=== PATIENT | female | born 1985 | race Caucasian/White ===

== ENCOUNTER 2016-12-21 22:42 | Emergency (ER) | payer OTHER ==
[2016-12-21 23:33] VITALS: BMI 39.6
[2016-12-21 23:36] VITALS: TEMP 98.4
--- NOTE | 2016-12-21 23:49 | ED PDOC ---
Arrival/HPI - General Chief Complaint: GI Problem Time Seen by Provider: 12/21/16 23:45 Historian: Patient - History of Present Illness Narrative History of Present Illness (Text): 12/21/16 23:49 Paige Goyal is a 31 year old female, whose past medical history includes cholecystectomy, who presents to the ED complaining of abdominal pain after eating yesterday. Patient states she developed abdominal pain with associated nausea, vomiting, and diarrhea after eating at a fast food restaurant yesterday evening. Patient denies any fever, chills, chest pain, shortness of breath, urinary symptoms, back pain, neck pain, headache, dizziness, or any other complaints. Time/Duration: Other (yesterday) Symptom Onset: Gradual Symptom Course: Unchanged Activities at Onset: Light, Eating Context: Home Past Medical History - Provider Review Nursing Documentation Reviewed: Yes - Infectious Disease Hx of Infectious Diseases: None - Tetanus Immunization Tetanus Immunization: Unknown - Cardiac Hx Cardiac Disorders: No - Pulmonary Hx Respiratory Disorders: Yes Hx Asthma: Yes - Neurological Hx Neurological Disorder: No - HEENT Hx HEENT Disorder: No - Renal Hx Renal Disorder: No - Endocrine/Metabolic Hx Endocrine Disorders: No - Hematological/Oncological Hx Blood Disorders: No - Integumentary Hx Dermatological Disorder: No - Musculoskeletal/Rheumatological Hx Musculoskeletal Disorders: No - Gastrointestinal Hx Gastrointestinal Disorders: Yes Hx Gall Bladder Disease: Yes Other/Comment: GALLBLADDER REMOVED 2015 - Genitourinary/Gynecological Hx Genitourinary Disorders: No - Psychiatric Hx Psychophysiologic Disorder: No Hx Substance Use: No - Surgical History Hx Cholecystectomy: Yes - Anesthesia Hx Anesthesia: Yes Hx Anesthesia Reactions: No Hx Malignant Hyperthermia: No - Suicidal Assessment Feels Threatened In Home Enviroment: No Family/Social History - Physician Review Nursing Documentation Reviewed: Yes Family/Social History: No Known Family HX Smoking Status: Never Smoked Hx Alcohol Use: No Hx Substance Use: No Allergies/Home Meds Allergies/Adverse Reactions: Allergies No Known Allergies Allergy (Verified 12/03/16 10:05) Home Medications: Home Meds Medication Instructions Recorded Confirmed Albuterol HFA [Ventolin HFA 90 1 puff INH PRN PRN 04/30/16 12/03/16 mcg/actuation (8 g)] Review of Systems - Physician Review All systems were reviewed & negative as marked: Yes - Review of Systems Constitutional: Normal. absent: Fevers Eyes: Normal ENT: Normal Respiratory: Normal. absent: SOB, Cough Cardiovascular: Normal. absent: Chest Pain Gastrointestinal: Abdominal Pain, Diarrhea, Nausea, Vomiting Genitourinary Female: Normal. absent: Dysuria, Frequency, Hematuria, Urine Output Changes Musculoskeletal: Normal. absent: Back Pain, Neck Pain Skin: Normal. absent: Rash Neurological: Normal. absent: Headache, Dizziness Endocrine: Normal Hemo/Lymphatic: Normal Psychiatric: Normal Physical Exam Vital Signs Reviewed: Yes Vital Signs Temp Pulse Resp BP Pulse Ox 12/22/16 02:16 79 17 114/53 L 99 12/21/16 23:35 98.4 F 96 H 18 106/64 100 Temperature: Afebrile Blood Pressure: Normal Pulse: Regular Respiratory Rate: Normal Appearance: Positive for: Well-Appearing, Non-Toxic, Comfortable Pain Distress: None Mental Status: Positive for: Alert and Oriented X 3 - Systems Exam Head: Present: Atraumatic, Normocephalic Pupils: Present: PERRL Extroacular Muscles: Present: EOMI Conjunctiva: Present: Normal Mouth: Present: Moist Mucous Membranes Neck: Present: Normal Range of Motion Respiratory/Chest: Present: Clear to Auscultation, Good Air Exchange. No: Respiratory Distress, Accessory Muscle Use Cardiovascular: Present: Regular Rate and Rhythm, Normal S1, S2. No: Murmurs Abdomen: Present: Normal Bowel Sounds. No: Tenderness, Distention, Peritoneal Signs Back: Present: Normal Inspection Upper Extremity: Present: Normal Inspection. No: Cyanosis, Edema Lower Extremity: Present: Normal Inspection. No: Edema Neurological: Present: GCS=15, CN II-XII Intact, Speech Normal Skin: Present: Warm, Dry, Normal Color. No: Rashes Psychiatric: Present: Alert, Oriented x 3, Normal Insight, Normal Concentration Medical Decision Making ED Course and Treatment: 12/21/16 23:49 Impression: 31 year old female complaining of abdominal pain, nausea, vomiting, and diarrhea after eating yesterday. Differential Diagnosis include but are not limited to: gastroenteritis Plan: -- Labs, lipase -- Urinalysis -- IV fluids -- Zofran -- Toradol -- Reassess and disposition Progress Notes: 12/22/16 01:55 On re-evaluation, the patient feels better and is in no acute distress. I have discussed the results and plan with the patient, who expresses understanding. Patient in agreement with plan to discharged home. Patient is stable for discharge. Patient was instructed to follow up with physician/clinic in 1-2 days or return if symptoms worsen or new concerning symptoms arise. Re-evaluation Time: :57 Reassessment Condition: Re-examined, Improved - Lab Interpretations Lab Results: 12/21/16 23:57 12/21/16 23:57 Lab Results 12/21/16 23:57: WBC 8.4 D, RBC 4.77, Hgb 13.2, Hct 38.7, MCV 81.1, MCH 27.7, MCHC 34.1, RDW 13.8, Plt Count 282, MPV 10.4, Gran % 83.7 H, Lymph % (Auto) 11.5 L, [place] % (Auto) 4.2, Eos % (Auto) 0.5 L, Baso % (Auto) 0.1, Gran # 7.01 H , Lymph # 1.0 L, [place] # 0.4, Eos # 0.0, Baso # 0.01, PT 10.7, INR 0.99, APTT 29.8, Sodium 134, Potassium 3.6, Chloride 100, Carbon Dioxide 24, Anion Gap 14, BUN 12, Creatinine 0.7, Est GFR ( Amer) > 60, Est GFR (Non-Af Amer) > 60 , Random Glucose 98, Calcium 8.9, Total Bilirubin 0.9, AST 31, ALT 23, Alkaline Phosphatase 59, Total Protein 8.4 H, Albumin 4.4, Globulin 4.0, Albumin/ Globulin Ratio 1.1, Lipase 83, Urine Color Yellow, Urine Appearance Clear, Urine pH 6.0, Ur Specific [place] 1.025, Urine Protein Negative, Urine Glucose ( UA) Negative, Urine Ketones Negative, Urine Blood Negative, Urine Nitrate Negative, Urine Bilirubin Negative, Urine Urobilinogen 0.2, Ur Leukocyte Esterase Negative, Urine HCG, Qual Negative - Medication Orders Current Medication Orders: Discontinued Medications Sodium Chloride (Sodium Chloride 0.9%) 1,000 mls @ 100 mls/hr IV .Q10H STA Stop: 12/22/16 09:51 Last Admin: 12/22/16 00:25 Dose: 100 MLS/HR eMAR Start Stop Document 12/22/16 00:25 MR (Rec: 12/22/16 00:26 MR [facility] [id number]) Intravenous Solution Start Date 12/22/16 Start Time 00:25 Ketorolac Tromethamine (Toradol) 30 mg IVP STAT STA Stop: 12/21/16 23:53 Last Admin: 12/22/16 00:25 Dose: 30 MG IVP Administration Document 12/22/16 00:25 MR (Rec: 12/22/16 00:25 [facility]-[id number]) Charges for Administration # of IVP Administrations 1 Ondansetron HCl (Zofran Inj) 4 mg IVP STAT STA Stop: 12/21/16 23:53 Last Admin: 12/22/16 00:25 Dose: 4 MG IVP Administration Document 12/22/16 00:25 MR (Rec: 12/22/16 00:25 [facility]-[id number]) Charges for Administration # of IVP Administrations 1 - Scribe Statement The provider has reviewed the documentation as recorded by the Elena Adams Provider Attestation: All medical record entries made by the Elena were at my direction and personally dictated by me. I have reviewed the chart and agree that the record accurately reflects my personal performance of the history, physical exam, medical decision making, and the department course for this patient. I have also personally directed, reviewed, and agree with the discharge instructions and disposition. Disposition/Present on Arrival - Present on Arrival Any Indicators Present on Arrival: No History of DVT/PE: No History of Uncontrolled Diabetes: No Urinary Catheter: No History of Decub. Ulcer: No History Surgical Site Infection Following: None - Disposition Have Diagnosis and Disposition been Completed?: Yes Diagnosis: Gastroenteritis Disposition: HOME/ ROUTINE Disposition Time: 01:57 Condition: GOOD Discharge Instructions (ExitCare): Gastroenteritis (ED) Prescriptions: Ondansetron [Zofran Odt] 8 mg PO TID PRN #10 odt PRN Reason: Nausea/Vomiting
[2016-12-21] MEDS ORDERED: Sodium Chloride 0.9% 1,000 ML IV STA (23:52)
[2016-12-22 00:38] LABS: ADD MANUAL DIFF? NO
[2016-12-22 00:49] LABS: BASO # 0.01 K/mm3 (0.0-2.0); BASO % 0.1 % (0.0-3.0); EOS % 0.5 % (1.5-5.0); GRAN # 7.01 (1.4-6.5); GRAN % 83.7 % (50.0-68.0); HEMATOCRIT 38.7 % (36.0-48.0); LYMPH % 11.5 % (22.0-35.0); MEAN CELL VOLUME 81.1 fL (80.0-105.0); MEAN CORPUSCULAR HEMOGLOBIN 27.7 pg (25.0-35.0); MEAN CORPUSCULAR HGB CONC 34.1 g/dl (31.0-37.0); MEAN PLATELET VOLUME 10.4 fl (7.0-11.0); MONO # 0.4 (0.1-0.6); MONO % 4.2 % (1.0-6.0); PLATELET COUNT 282 10^3/uL (120.0-450.0); RED CELL DISTRIBUTION WIDTH 13.8 % (11.5-14.5); WHITE BLOOD COUNT 8.4 10^3/ul (4.5-11.0)
[2016-12-22 00:51] LABS: ALB/GLOB RATIO 1.1 (1.1-1.8); ALKALINE PHOSPHATASE 59 U/L (38-133); ALT/SGPT 23 U/L (7-56); AST/SGOT 31 U/L (15-39); BILIRUBIN,TOTAL 0.9 mg/dL (0.2-1.3); BLOOD UREA NITROGEN 12 mg/dL (7-21); CALCIUM 8.9 mg/dL (8.4-10.5); CARBON DIOXIDE 24 mmol/L (21-33); CHLORIDE 100 mmol/L (98-107); GFR AFRICAN-AMERICAN > 60; GLUCOSE,RANDOM 98 mg/dL (70-110); INR 0.99 (0.93-1.08); LIPASE 83 U/L (23-300); PARTIAL THROMBOPLASTIN TIME 29.8 Seconds (23.7-30.8); POTASSIUM 3.6 mmol/L (3.6-5.0); SODIUM 134 mmol/L (132-148); TOTAL PROTEIN 8.4 g/dL (5.8-8.3)
[2016-12-22 00:52] LABS: URINE BILIRUBIN NEGATIVE (NEGATIVE); URINE BLOOD NEGATIVE (NEGATIVE); URINE GLUCOSE (UA) NEGATIVE (NEGATIVE); URINE KETONE NEGATIVE (NEGATIVE); URINE LEUKOCYTE ESTERASE NEGATIVE Leu/uL (NEGATIVE); URINE PROTEIN NEGATIVE mg/dL (<30 mg/dL); URINE UROBILINOGEN 0.2 E.U./dL (<1 E.U./dL)
[2016-12-22 00:57] LABS: URINE APPEARANCE CLEAR (CLEAR); URINE COLOR YELLOW (YELLOW)
[2016-12-22 02:29] VITALS: BP 114/53; PULSE 79; RESP 17; O2SAT 99
== END 2016-12-22 02:18 | disposition home or self-care (01) ==
LOC: ED 22:42
DX: K52.9 Noninfective gastroenteritis and colitis, unspecified (principal); Z90.49 Acquired absence of other specified parts of digestive tract
CPT/HCPCS: 80053; 81003; 83690; 84703; 85025; 85610; 85730; 96374; 96375; 99284; J1885; J2405; J7040

== ENCOUNTER 2018-02-17 14:25 | Emergency (ER) | payer OTHER ==
[2018-02-17 14:33] VITALS: BMI 41.5
[2018-02-17 14:34] VITALS: RESP 18
[2018-02-17] MEDS ORDERED: Sodium Chloride 0.9% 1,000 ML IV STA ×2 (14:51→17:49)
--- NOTE | 2018-02-17 15:29 | ED PDOC ---
Arrival/HPI - General Chief Complaint: Abdominal Pain Time Seen by Provider: 02/17/18 14:48 Historian: Patient - History of Present Illness Narrative History of Present Illness (Text): 02/17/18 15:21 32yr old female presents today with abdominal pain, nausea, vomiting, diarrhea since 7am this morning. pt States she woke up with lower abdominal cramping and sharp pain followed by episode of diarrhea. Patient states the pain continued and then she started to develop nausea and vomiting. Patient states the pain is constant and now is radiating to the right flank. Patient denies any urinary symptoms. She denies chest pain or shortness of breath. Patient states she tried to take Pepto-Bismol but shortly after taking Pepto-Bismol she vomited again. Patient states she is feeling extremely nauseous to the point where she has been unable to eat or drink anything today. Patient states she also noticed that all extremities felt weak and tingly. Time/Duration: Other (This AM) Symptom Onset: Sudden Symptom Course: Unchanged Quality: Stabbing, Cramping Severity Level: Moderate Past Medical History - Provider Review Nursing Documentation Reviewed: Yes - Travel History Have you recently traveled outside [place] w/in the past 3 mons?: No - Infectious Disease Hx of Infectious Diseases: None - Tetanus Immunization Tetanus Immunization: Unknown - Cardiac Hx Cardiac Disorders: No - Pulmonary Hx Respiratory Disorders: Yes Hx Asthma: Yes - Neurological Hx Neurological Disorder: No - HEENT Hx HEENT Disorder: No - Renal Hx Renal Disorder: No - Endocrine/Metabolic Hx Endocrine Disorders: No - Hematological/Oncological Hx Blood Disorders: No - Integumentary Hx Dermatological Disorder: No - Musculoskeletal/Rheumatological Hx Musculoskeletal Disorders: No - Gastrointestinal Hx Gastrointestinal Disorders: Yes Hx Gall Bladder Disease: Yes Other/Comment: GALLBLADDER REMOVED 2015 - Genitourinary/Gynecological Hx Genitourinary Disorders: No - Psychiatric Hx Psychophysiologic Disorder: No Hx Substance Use: No - Surgical History Hx Cholecystectomy: Yes - Anesthesia Hx Anesthesia: Yes Hx Anesthesia Reactions: No Hx Malignant Hyperthermia: No - Suicidal Assessment Feels Threatened In Home Enviroment: No Family/Social History - Physician Review Nursing Documentation Reviewed: Yes Family/Social History: Unknown Family HX Smoking Status: Never Smoked Hx Alcohol Use: No Hx Substance Use: No Allergies/Home Meds Allergies/Adverse Reactions: Allergies No Known Allergies Allergy (Verified 03/11/17 10:05) Home Medications: Home Meds Medication Instructions Recorded Confirmed Albuterol HFA [Ventolin HFA 90 1 puff INH PRN PRN 04/30/16 12/03/16 mcg/actuation (8 g)] Review of Systems - Review of Systems Constitutional: Fevers (subjective fevers/chills). absent: Fatigue Respiratory: absent: SOB, Cough Cardiovascular: absent: Chest Pain, Palpitations Gastrointestinal: Abdominal Pain, Diarrhea, Nausea, Vomiting. absent: Constipation Genitourinary Female: absent: Dysuria, Frequency, Hematuria Musculoskeletal: Back Pain. absent: Arthralgias, Neck Pain Skin: absent: Rash, Pruritis Neurological: absent: Headache, Dizziness Psychiatric: absent: Anxiety, Depression, Suicidal Ideation Physical Exam Vital Signs Reviewed: Yes Vital Signs Temp Pulse Resp BP Pulse Ox 02/17/18 20:09 117/63 02/17/18 19:29 98.9 F 91 H 18 106/58 L 99 02/17/18 17:41 86 18 98/72 L 100 02/17/18 15:29 92 H 18 105/66 100 02/17/18 14:27 98.8 F 106 H 18 101/70 99 Temperature: Afebrile Blood Pressure: Normal Pulse: Tachycardic Respiratory Rate: Normal Appearance: Positive for: Well-Appearing, Non-Toxic, Comfortable Pain Distress: None Mental Status: Positive for: Alert and Oriented X 3 - Systems Exam Head: Present: Atraumatic Mouth: Present: Moist Mucous Membranes Neck: Present: Normal Range of Motion Respiratory/Chest: Present: Clear to Auscultation, Good Air Exchange. No: Respiratory Distress, Accessory Muscle Use Cardiovascular: Present: Regular Rate and Rhythm, Normal S1, S2. No: Murmurs Abdomen: Present: Tenderness (diffuse abdominal tenderness. ). No: Distention, Peritoneal Signs, Guarding Back: Present: Normal Inspection. No: CVA Tenderness, Midline Tenderness, Paraspinal Tenderness Upper Extremity: Present: Normal ROM, NORMAL PULSES. No: Swelling Lower Extremity: Present: Normal ROM Neurological: Present: GCS=15, Speech Normal Skin: Present: Warm, Dry, Normal Color. No: Rashes Psychiatric: Present: Alert, Oriented x 3 Medical Decision Making ED Course and Treatment: 02/17/18 15:31 Patient is nontoxic well appearing with stable vital signs presenting with abdominal pain CBC wbc: 11.5 CMP wnl Lipase wnl Urinalysis trace ketones CAT scan: FINDINGS: LOWER THORAX: Mild linear/nodular appearing scarring changes seen in the left lingular region and anterolateral of lower lung field extending to the pleural surface with some localized pleural thickening. There also appears to be some minor linear scarring in the middle lobe. Extending to the base the Lung bases are otherwise clear without evidence of infiltrate effusion or basilar pneumothorax. There is a tiny hiatal hernia. Heart size normal. No significant pericardial effusion. LIVER: Liver is upper limits of normal in size measuring just over 18 cm in CC dimension. Liver exhibits normal attenuation pattern. Portal and splenic veins are opacified. GALLBLADDER AND BILE DUCTS: Cholecystectomy. PANCREAS: Unremarkable. No mass. No ductal dilatation. SPLEEN: Spleen is borderline/mildly enlarged measuring nearly 13 cm in AP dimension. No splenic mass collection or calcification. ADRENALS: There are no adrenal lesions. KIDNEYS AND URETERS: Kidneys demonstrate relatively symmetric nephrograms. No evidence of nephrolithiasis or hydronephrosis. BLADDER: Urinary bladder is incompletely distended which in part accounts for thick- walled appearance. Correlation with urinalysis recommended to exclude cystitis. REPRODUCTIVE: In situ Copper-T IUD. APPENDIX: What appears to represent a normal appendix best seen on axial image number [id number]. No periappendiceal inflammatory changes are identified. . BOWEL: Evaluation of the bowel is somewhat limited due to the lack of oral contrast material. The stomach is incompletely distended which in part accounts for thick-walled appearance. Visualized loops of small bowel exhibit relatively normal caliber though are fluid-filled throughout ; findings may represent underlying diarrheal illness. Liquid stool is also present within the right as well as transverse colon also consistent with diarrheal illness. Clinical correlation with history recommended. . PERITONEUM: Unremarkable. No fluid collection. No free air. Small fat containing umbilical hernia. LYMPH NODES: Unremarkable. No enlarged lymph nodes. VASCULATURE: Unremarkable. No aortic aneurysm. BONES: Minor multilevel degenerative spondylosis of the lower thoracic and lumbar spine. OTHER FINDINGS: None. IMPRESSION: Status post cholecystectomy. Liquids multiple nondistended fluid-filled loops of small bowel with liquid stool seen in the right and transverse colon. Findings suggest underlying diarrheal illness. Clinical correlation recommended. Borderline/mild splenomegaly. Liver is upper limits of normal in size. In situ Copper-T IUD. Patient reassessment:pt is non toxic well appearing; vitals stable. pt is afebrile feeling slightly better. will send stool culture; pt unable to given stool culture. will place patient on bactrim for bacterial causes of diarrhea. advised f/u with PMD and GI specialist. advised taking abx as prescribed. advised immediate return if symptoms worsen, persist or if new symptoms develop. Discussed all results with patient in depth Patient verbalizes understanding of discharge instructions and need for immediate followup. all aspects of this case were discussed the attending of record. Impression: Abdominal pain, diarrhea Motrin every 6 hours as needed for pain Increase fluids bactrim; 1 tablet twice daily x 7 days. Follow up with primary care physician within the next 2 days Follow up with the GI specialist within the next 2 days. Return immediately if symptoms worsen persist or if new symptoms develop: High fevers, increasing pain, vomiting, diarrhea or any other concerning symptoms develop Reassessment Condition: Re-examined, Improved - Lab Interpretations Lab Results: 02/17/18 15:18 02/17/18 15:18 Lab Results 02/17/18 16:20: Urine Color Yellow, Urine Appearance Clear, Urine pH 6.0, Ur Specific [place] 1.025, Urine Protein Negative, Urine Glucose (UA) Negative, Urine Ketones Trace H, Urine Blood Negative, Urine Nitrate Negative, Urine Bilirubin Negative, Urine Urobilinogen 0.2, Ur Leukocyte Esterase Negative, Urine HCG, Qual Negative 02/17/18 15:18: WBC 11.5 H D, RBC 4.83, Hgb 13.3, Hct 39.1, MCV 81.0, MCH 27.5, MCHC 34.0, RDW 13.7, Plt Count 261, MPV 10.2, Gran % 93.4 H, Lymph % (Auto) 4.1 L, [place] % (Auto) 2.3, Eos % (Auto) 0.1 L, Baso % (Auto) 0.1, Gran # 10.73 H, Lymph # (Auto) 0.5 L, [place] # (Auto) 0.3, Eos # (Auto) 0.0, Baso # (Auto) 0.01, Neutrophils % (Manual) 91 H, Band Neutrophils % 2, Lymphocytes % (Manual) 6 L, Monocytes % (Manual) 1, Platelet Evaluation Normal 02/17/18 15:18: Sodium 140, Potassium 4.0, Chloride 105, Carbon Dioxide 22, Anion Gap 17, BUN 14, Creatinine 0.7, Est GFR ( Amer) > 60, Est GFR (Non- Af Amer) > 60, Random Glucose 108, Calcium 9.0, Total Bilirubin 0.7, AST 29, ALT 26, Alkaline Phosphatase 48, Total Protein 7.6, Albumin 4.3, Globulin 3.3, Albumin/Globulin Ratio 1.3, Lipase 40 - RAD Interpretation Radiology Orders: 02/17/18 15:49 ABD & PELVIS IV CONTRAST ONLY [CT] Stat - Medication Orders Current Medication Orders: Discontinued Medications Acetaminophen (Tylenol 325mg Tab) 975 mg PO STAT STA Stop: 02/17/18 19:45 Last Admin: 02/17/18 20:07 Dose: 975 mg MAR Pain/Vitals Document 02/17/18 20:07 OCS (Rec: 02/17/18 20:08 OCS [id number]) Pain Reassessment Is This A Pain ReAssessment? Yes Sleep Is patient sleeping during reassessment? No Presence of Pain Presence of Pain Yes Pain Scale Used Pain Scale Used Numeric Location Left, Right or Bilateral Bilateral Pain Location Body Site Abdomen Description Constant Intensity 10 Scale Used Numeric Pain Behavior Moaning Aggravating Factors ADL's Sodium Chloride (Sodium Chloride 0.9%) 1,000 mls @ 999 mls/hr IV .Q1H1M STA Stop: 02/17/18 15:51 Last Admin: 02/17/18 15:20 Dose: 999 mls/hr eMAR Start Stop Document 02/17/18 15:20 OCS (Rec: 02/17/18 15:24 OCS [id number]) Intravenous Solution Start Date 02/17/18 Start Time 15:20 End Date 02/17/18 End time 16:21 Total Infusion Time 61 Sodium Chloride (Sodium Chloride 0.9%) 1,000 mls @ 999 mls/hr IV .Q1H1M STA Stop: 02/17/18 18:49 Last Admin: 02/17/18 18:03 Dose: 999 mls/hr eMAR Start Stop Document 02/17/18 18:03 OCS (Rec: 02/17/18 18:03 OCS [id number]) Intravenous Solution Start Date 02/17/18 Start Time 18:03 End Date 02/17/18 End time 19:04 Total Infusion Time 61 Ketorolac Tromethamine (Toradol) 30 mg IVP STAT STA Stop: 02/17/18 16:30 Last Admin: 02/17/18 16:41 Dose: 30 mg MAR Pain Assessment Document 02/17/18 16:41 OCS (Rec: 02/17/18 16:42 OCS [id number]) Pain Reassessment Is this a pain reassessment? Yes Sleep Is patient sleeping during reassessment? No Presence of Pain Presence of Pain Yes Pain Scale Used Pain Scale Used Numeric Location Left, Right or Bilateral Bilateral Pain Location Body Site Abdomen Description Description Constant Intensity of Pain at present 10 Pain Behavior Irritability Rubbing Site Facial Grimacing Aggravating Factors ADL's IVP Administration Document 02/17/18 16:41 OCS (Rec: 02/17/18 16:42 OCS [id number]) Charges for Administration # of IVP Administrations 1 Ondansetron HCl (Zofran Inj) 4 mg IVP STAT STA Stop: 02/17/18 16:30 Last Admin: 02/17/18 16:41 Dose: 4 mg IVP Administration Document 02/17/18 16:41 OCS (Rec: 02/17/18 16:41 OCS [id number]) Charges for Administration # of IVP Administrations 1 Disposition/Present on Arrival - Present on Arrival Any Indicators Present on Arrival: No History of DVT/PE: No History of Uncontrolled Diabetes: No Urinary Catheter: No History of Decub. Ulcer: No History Surgical Site Infection Following: None - Disposition Have Diagnosis and Disposition been Completed?: Yes Diagnosis: Abdominal pain, Diarrhea Disposition: HOME/ ROUTINE Disposition Time: 18:30 Patient Plan: Discharge Patient Problems: Current Active Problems Problem Status Onset Abdominal pain Acute Diarrhea Acute Condition: GOOD Discharge Instructions (ExitCare): Diarrhea in Adolescents and Adults, Acute Abdomen (Belly Pain), Adult (DC) Additional Instructions: Motrin every 6 hours as needed for pain Increase fluids Bactrim 1 tablet twice daily x 7 days. Follow up with primary care physician within the next 2 days Follow up with the GI specialist within the next 2 days. Return immediately if symptoms worsen persist or if new symptoms develop: High fevers, increasing pain, vomiting, diarrhea or any other concerning symptoms develop Prescriptions: Ibuprofen [Motrin] 600 mg PO Q6H PRN #20 tab PRN Reason: pain/fever reduction Sulfamethoxazole/Trimethoprim [Bactrim DS 800 mg-160 mg] 1 tab PO BID #14 tab Referrals: Conor Garcia MD [Primary Care Provider] - Follow up with primary Rajani Buchanan MD [Medical Doctor] - Follow up with primary Forms: [employer] (E[place]ian)
[2018-02-17 15:32] LABS: BASO # 0.01 K/mm3 (0.0-2.0); BASO % 0.1 % (0.0-3.0); EOS % 0.1 % (1.5-5.0); GRAN # 10.73 (1.4-6.5); GRAN % 93.4 % (50.0-68.0); HEMOGLOBIN 13.3 g/dL (12.0-16.0); LYMPH # 0.5 (1.2-3.4); LYMPH % 4.1 % (22.0-35.0); MEAN CORPUSCULAR HEMOGLOBIN 27.5 pg (25.0-35.0); MEAN PLATELET VOLUME 10.2 fl (7.0-11.0); MONO # 0.3 (0.1-0.6); MONO % 2.3 % (1.0-6.0); PLATELET COUNT 261 10^3/uL (120.0-450.0); RBC 4.83 10^6/uL (3.5-6.1); RED CELL DISTRIBUTION WIDTH 13.7 % (11.5-14.5); WHITE BLOOD COUNT 11.5 10^3/ul (4.5-11.0)
[2018-02-17 15:42] LABS: ALB/GLOB RATIO 1.3 (1.1-1.8); ALBUMIN 4.3 g/dL (3.0-4.8); ALT/SGPT 26 U/L (7-56); AST/SGOT 29 U/L (14-36); BLOOD UREA NITROGEN 14 mg/dL (7-21); GFR AFRICAN-AMERICAN > 60; GFR NON-AFRICAN AMERICAN > 60; LIPASE 40 U/L (23-300)
[2018-02-17 15:56] LABS: BAND 2 % (0-2); LYMPHOCYTE 6 % (22.0-35.0); MONOCYTE 1 % (1.0-6.0); NEUTROPHIL 91 % (50.0-70.0)
[2018-02-17 15:57] LABS: PLATELET ESTIMATE NORMAL (NORMAL)
[2018-02-17] MEDS ORDERED: Iohexol 350 MG/100 ML VIAL ONE (16:25)
[2018-02-17 16:28] LABS: URINE BILIRUBIN NEGATIVE (NEGATIVE); URINE BLOOD NEGATIVE (NEGATIVE); URINE GLUCOSE (UA) NEGATIVE (NEGATIVE); URINE LEUKOCYTE ESTERASE NEGATIVE Leu/uL (NEGATIVE); URINE PROTEIN NEGATIVE mg/dL (<30 mg/dL); URINE UROBILINOGEN 0.2 E.U./dL (<1 E.U./dL)
[2018-02-17 16:29] LABS: URINE APPEARANCE CLEAR (CLEAR); URINE COLOR YELLOW (YELLOW)
[2018-02-17 16:30] LABS: HCG,QUALITATIVE URINE NEGATIVE (NEGATIVE)
--- NOTE | 2018-02-17 17:28 | CT ---
PROCEDURE: CT scan abdomen and pelvis 02/17/2018 HISTORY: Abdominal. Patient questionnaire indicates prior cholecystectomy COMPARISON: No prior study available for comparison. TECHNIQUE: Contiguous helical/transaxial images of the abdomen and pelvi pelvis performed following intravenous injection of approximately 100 cc Omnipaque 350 contrast material. Additional 2 2D sagittal and coronal reformats generated. Radiation dose: Total exam DLP = 1144.19 mGy-cm. This CT exam was performed using one or more of the following dose reduction techniques: Automated exposure control, adjustment of the mA and/or kV according to patient size, and/or use of iterative reconstruction technique. . . FINDINGS: LOWER THORAX: Mild linear/nodular appearing scarring changes seen in the left lingular region and anterolateral of lower lung field extending to the pleural surface with some localized pleural thickening. There also appears to be some minor linear scarring in the middle lobe. Extending to the base the Lung bases are otherwise clear without evidence of infiltrate effusion or basilar pneumothorax. There is a tiny hiatal hernia. Heart size normal. No significant pericardial effusion. LIVER: Liver is upper limits of normal in size measuring just over 18 cm in CC dimension. Liver exhibits normal attenuation pattern. Portal and splenic veins are opacified. GALLBLADDER AND BILE DUCTS: Cholecystectomy. PANCREAS: Unremarkable. No mass. No ductal dilatation. SPLEEN: Spleen is borderline/mildly enlarged measuring nearly 13 cm in AP dimension. No splenic mass collection or calcification. ADRENALS: There are no adrenal lesions. KIDNEYS AND URETERS: Kidneys demonstrate relatively symmetric nephrograms. No evidence of nephrolithiasis or hydronephrosis. BLADDER: Urinary bladder is incompletely distended which in part accounts for thick-walled appearance. Correlation with urinalysis recommended to exclude cystitis. REPRODUCTIVE: In situ Copper-T IUD. APPENDIX: What appears to represent a normal appendix best seen on axial image number [id number]. No periappendiceal inflammatory changes are identified. . BOWEL: Evaluation of the bowel is somewhat limited due to the lack of oral contrast material. The stomach is incompletely distended which in part accounts for thick-walled appearance. Visualized loops of small bowel exhibit relatively normal caliber though are fluid-filled throughout ; findings may represent underlying diarrheal illness. Liquid stool is also present within the right as well as transverse colon also consistent with diarrheal illness. Clinical correlation with history recommended. . PERITONEUM: Unremarkable. No fluid collection. No free air. Small fat containing umbilical hernia. LYMPH NODES: Unremarkable. No enlarged lymph nodes. VASCULATURE: Unremarkable. No aortic aneurysm. BONES: Minor multilevel degenerative spondylosis of the lower thoracic and lumbar spine. OTHER FINDINGS: None. IMPRESSION: Status post cholecystectomy. Liquids multiple nondistended fluid-filled loops of small bowel with liquid stool seen in the right and transverse colon. Findings suggest underlying diarrheal illness. Clinical correlation recommended. Borderline/mild splenomegaly. Liver is upper limits of normal in size. In situ Copper-T IUD.
[2018-02-17] MEDS ORDERED: Tmp-Smz 800 mg-160 mg DS Tab PO STA (20:09)
[2018-02-17 20:37] VITALS: BP 103/57; PULSE 85; TEMP 98.3; O2SAT 100
== END 2018-02-17 20:36 | disposition home or self-care (01) ==
LOC: ED 14:25
DX: R10.9 Unspecified abdominal pain (principal); R19.7 Diarrhea, unspecified
CPT/HCPCS: 74177; 80053; 81003; 83690; 84703; 85025; 96361; 96374; 96375; 99284; J1885; J2405; J7040; Q9967

== ENCOUNTER 2018-08-21 10:12 | Emergency (ER) | payer OTHER ==
[2018-08-21 11:07] VITALS: BMI 44.9
[2018-08-21 11:15] VITALS: RESP 18; TEMP 98.2; O2SAT 100
--- NOTE | 2018-08-21 11:36 | ED PDOC ---
Arrival/HPI - General Chief Complaint: Rib Injury Time Seen by Provider: 08/21/18 10:59 Historian: Patient - History of Present Illness Narrative History of Present Illness (Text): 08/21/18 11:21 32 year old female, with no significant past medical history, presents to the Emergency department complaining of cold symptoms since 1 week. Patient informs non-productive cough associated with sneezing, unimproved after completing a full course of antibiotics. Patient reports experiencing discomfort to her right rib for past few days, exacerbated by coughing or sneezing, prompting her to present to the ED for medical evaluation. Patient denies any recent trauma or injury to the site. Patient denies any other associated somatic complaints. Patient denies any fevers, chills, headache, dizziness, chest pain, shortness of breath, dyspnea on exertion, abdominal pain, nausea, vomiting, diarrhea, back pain, neck pain, or any other complaints. Patient denies any history of smoking. PMD: Dr. Garcia Time/Duration: 1 week Symptom Onset: Gradual Symptom Course: Unchanged Activities at Onset: Light Context: Home Past Medical History - Provider Review Nursing Documentation Reviewed: Yes - Infectious Disease Hx of Infectious Diseases: None - Tetanus Immunization Tetanus Immunization: Unknown - Cardiac Hx Cardiac Disorders: No - Pulmonary Hx Asthma: Yes - Neurological Hx Neurological Disorder: No - HEENT Hx HEENT Disorder: No - Renal Hx Renal Disorder: No - Endocrine/Metabolic Hx Endocrine Disorders: No - Hematological/Oncological Hx Blood Disorders: No - Integumentary Hx Dermatological Disorder: No - Musculoskeletal/Rheumatological Hx Musculoskeletal Disorders: No - Gastrointestinal Hx Gall Bladder Disease: Yes - Genitourinary/Gynecological Hx Genitourinary Disorders: No - Psychiatric Hx Psychophysiologic Disorder: No Hx Substance Use: No - Surgical History Hx Cholecystectomy: Yes - Anesthesia Hx Anesthesia: Yes Hx Anesthesia Reactions: No Hx Malignant Hyperthermia: No - Suicidal Assessment Feels Threatened In Home Enviroment: No Family/Social History - Physician Review Nursing Documentation Reviewed: Yes Family/Social History: Unknown Family HX Smoking Status: Never Smoked Hx Alcohol Use: No Hx Substance Use: No Allergies/Home Meds Allergies/Adverse Reactions: Allergies No Known Allergies Allergy (Verified 08/21/18 11:15) Home Medications: Home Meds Medication Instructions Recorded Confirmed Hydroxychloroquine Sulfate 200 mg pe PO QD7 06/04/18 08/21/18 [Plaquenil] RX: Folic Acid 1 mg PO DAILY 06/04/18 08/21/18 Review of Systems - Physician Review All systems were reviewed & negative as marked: Yes - Review of Systems Constitutional: absent: Fevers Respiratory: Cough. absent: SOB Cardiovascular: absent: Chest Pain, PENA Gastrointestinal: absent: Abdominal Pain, Diarrhea, Nausea, Vomiting Musculoskeletal: Other (Right rib pain). absent: Back Pain, Neck Pain Skin: absent: Rash Neurological: absent: Headache, Dizziness Physical Exam Vital Signs Reviewed: Yes Vital Signs Temp Pulse Resp BP Pulse Ox 08/21/18 11:11 98.2 F 76 18 106/66 100 Temperature: Afebrile Blood Pressure: Normal Pulse: Regular Respiratory Rate: Normal Appearance: Positive for: Well-Appearing, Non-Toxic, Comfortable Pain Distress: None Mental Status: Positive for: Alert and Oriented X 3 - Systems Exam Head: Present: Atraumatic, Normocephalic Pupils: Present: PERRL Extroacular Muscles: Present: EOMI Conjunctiva: Present: Normal Neck: Present: Normal Range of Motion Respiratory/Chest: Present: Clear to Auscultation, Good Air Exchange, Other (tenderness to right lateral rib around the level of T5 bone. No rash or ecchymosis noted. ). No: Respiratory Distress, Accessory Muscle Use Cardiovascular: Present: Regular Rate and Rhythm, Normal S1, S2. No: Murmurs Abdomen: No: Tenderness, Distention, Peritoneal Signs Back: Present: Normal Inspection Upper Extremity: Present: Normal Inspection. No: Cyanosis, Edema Lower Extremity: Present: Normal Inspection. No: Edema Neurological: Present: GCS=15, CN II-XII Intact, Speech Normal Skin: Present: Warm, Dry, Normal Color. No: Rashes Psychiatric: Present: Alert, Oriented x 3, Normal Insight, Normal Concentration Medical Decision Making ED Course and Treatment: 08/21/18 11:21 Impression: 32 year old female presents to the Emergency department complaining of cold symptoms and right rib pain. Plan: -- Chest X-ray -- Toradol -- Reassess and disposition Prior Visits: Notes and results from previous visits were reviewed. Progress Notes: 08/21/18 13:24 On reassessment, patient informs improved symptoms. Patient is stable to be discharged home. Patient was advised to continue anti-inflammatory medications as needed at home. Patient understands and agrees with plan. - RAD Interpretation Narrative RAD Interpretations (Text): 08/21/18 13:04 Chest X-ray reviewed by radiologist, shows: FINDINGS: LUNGS: No active pulmonary disease. PLEURA: No significant pleural effusion identified. No pneumothorax apparent. CARDIOVASCULAR: No aortic atherosclerotic calcification present. Normal cardiac size. No pulmonary vascular congestion. OSSEOUS STRUCTURES: No significant abnormalities. VISUALIZED UPPER ABDOMEN: Normal. OTHER FINDINGS: None. IMPRESSION: No active disease. Radiology Orders: 08/21/18 11:21 CHEST TWO VIEWS (PA/LAT) [RAD] Stat Recruitment Advertising Manager: Radiologist - Medication Orders Current Medication Orders: Discontinued Medications Ketorolac Tromethamine (Toradol) 60 mg IM STAT STA Stop: 08/21/18 11:21 - Scribe Statement The provider has reviewed the documentation as recorded by the Scribe Kamila Browning. All medical record entries made by the Scribe were at my direction and personally dictated by me. I have reviewed the chart and agree that the record accurately reflects my personal performance of the history, physical exam, medical decision making, and the department course for this patient. I have also personally directed, reviewed, and agree with the discharge instructions and disposition. Disposition/Present on Arrival - Present on Arrival Any Indicators Present on Arrival: No History of DVT/PE: No History of Uncontrolled Diabetes: No Urinary Catheter: No History of Decub. Ulcer: No History Surgical Site Infection Following: None - Disposition Have Diagnosis and Disposition been Completed?: Yes Diagnosis: Chest wall pain Disposition: HOME/ ROUTINE Disposition Time: 13:22 Patient Problems: Current Active Problems Problem Status Onset Chest wall pain Acute Condition: STABLE Discharge Instructions (ExitCare): Costochondritis (DC) Additional Instructions: GAYLE WORRELL, thank you for letting us take care of you today. Your provider was Priscilla Garcias MD and you were treated for pain in back when breathing. The emergency medical care you received today was directed at your acute symptoms. If you were prescribed any medication, please fill it and take as directed. It may take several days for your symptoms to resolve. Return to the Emergency Department if your symptoms worsen, do not improve, or if you have any other problems. Please contact your doctor or call one of the physicians/clinics you have been referred to that are listed on the Patient Visit Information form that is included in your discharge packet. Bring any paperwork you were given at discharge with you along with any medications you are taking to your follow up visit. Our treatment cannot replace ongoing medical care by a primary care provider outside of the emergency department. Thank you for allowing the [facility] team to be part of your care today. If you had an X-Ray or CT scan: A Radiologist will review the ED reading if any change in treatment is needed we will contact you. If you had a blood, urine, or wound culture: It will take several days for the results, if any change in treatment is needed we will contact you. If you had an STI test: It will take 48 hours for the results. Please call after 1 week if you have not heard back. Forms: [employer] ([employer])
--- NOTE | 2018-08-21 12:43 | RAD ---
Date of service: 08/21/2018 HISTORY: cough COMPARISON: No prior. TECHNIQUE: Chest PA and lateral FINDINGS: LUNGS: No active pulmonary disease. PLEURA: No significant pleural effusion identified. No pneumothorax apparent. CARDIOVASCULAR: No aortic atherosclerotic calcification present. Normal cardiac size. No pulmonary vascular congestion. OSSEOUS STRUCTURES: No significant abnormalities. VISUALIZED UPPER ABDOMEN: Normal. OTHER FINDINGS: None. IMPRESSION: No active disease.
[2018-08-21 15:53] VITALS: BP 110/67; PULSE 70
== END 2018-08-21 13:30 | disposition home or self-care (01) ==
LOC: ED 10:12
DX: R07.89 Other chest pain (principal); J45.909 Unspecified asthma, uncomplicated
CPT/HCPCS: 71046; 96372; 99282; J1885